=== PATIENT | male | born 1990 | race Two or more races ===

== ENCOUNTER 2025-06-17 07:32 | Emergency (ER) | payer MEDICAID, SELFPAY ==
--- NOTE | 2025-06-17 07:37 | EKG_ITS ---
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
--- NOTE | 2025-06-17 07:50 | XR_ITS ---
Examination: PA lateral chest 2 views TECHNIQUE: Upright PA lateral chest 2 views Date and time: June 17, 2025, 0816 hours, comparison December 29, 2023 INDICATIONS: Left-sided sternal chest pain beginning 3 days ago. FINDINGS: Normal heart size Lungs are clear. The osseous structures are intact IMPRESSION: No active disease
--- NOTE | 2025-06-17 07:50 | PD.EDRME ---
Rapid Medical Screening Exam RME Arrival date/time: 06/17/25 07:32 35-year-old male with a history of hypertension presents to the emergency room with a chief complaint of left-sided sternal chest pain that radiates to his left arm x 3 days I have greeted and performed a focused initial assessment of this patient. A comprehensive ED assessment and evaluation of the patient, analysis of all test results, and completion of the medical decision making process will be conducted by additional ED providers. Chief Complaint: Chest Pain Vital signs reviewed by provider: Yes
[2025-06-17 07:54] VITALS: BP 133/83; PULSE 48; RESP 18; TEMP 36.9; O2SAT 99
--- NOTE | 2025-06-17 08:33 | PD.EDCHEST ---
ED Chest Pain RME/HPI General Chief Complaint: Chest Pain Stated Complaint: CHEST PAIN/DYSPNEA SINCE SAT Arrival date/time: 06/17/25 07:32 RME / HPI RME / HPI narrative: 06/17/25 07:32 35-year-old male with a history of hypertension presents to the emergency room with a chief complaint of left-sided sternal chest pain that radiates to his left arm x 3 days I have greeted and performed a focused initial assessment of this patient. A comprehensive ED assessment and evaluation of the patient, analysis of all test results, and completion of the medical decision making process will be conducted by additional ED providers. DR SHORE MAIN ED EVALUATION: 35 yo male patient c/o left sided chest pain x 3 days. States he noticed it while trimming trees at home over the weekend. States pain is sharp, worse with inspiration, radiates around left chest. Associated SOB. No cough, no fever. Related Data Home Medications ?Medication ?Instructions ?Recorded ?Confirmed fenofibrate nanocrystallized 145 145 mg PO DAILY 12/30/23 12/30/23 mg tablet Held on 01/01/24. Instructions: Resume on 01/15/24. hold until follow up with PCP, lisinopril 20 mg tablet 20 mg PO QDAY 12/30/23 12/30/23 sertraline 25 mg tablet 25 mg PO DAILY 12/30/23 12/30/23 Allergies Allergy/AdvReac Type Severity Reaction Status Date / Time No Known Allergies Allergy Verified 06/17/25 07:35 Review of Systems Review of Systems Systems Reviewed: All systems reviewed, normal except as documented Past Medical History Past Medical History CARDIAC: Positive Cardiac Disorders, Hypercholesterolemia and Hypertension ENDOCRINE: Positive Diabetes Mellitus Type 2 Surgical History SURGICAL: Negative Cardiac Surgery Social History SMOKING STATUS: Never smoker SUBSTANCE USE: does not use ED Exam Narrative Physical exam: GENERAL APPEARANCE: alert and oriented x 4, well-developed, well-nourished, no acute distress HEENT: Normocephalic, atraumatic; pupils equal, round, reactive to light; EOMI; mucous membranes pink, moist; oropharynx clear NECK: Supple LUNGS: CTABL; no wheezes, no rales, no rhonchi HEART: Regular rate, regular rhythm; normal S1, S2; no murmurs ABDOMEN: non distended; normal BS; soft, no tenderness, no guarding, no rebound; no masses, no organomegaly, no hernia BACK: no CVA tenderness EXTREMITIES: atraumatic; no edema NEUROLOGIC: awake; alert and oriented x4; cranial nerves II-XII grossly intact; no focal sensory or motor deficits PSYCHIATRIC: appropriate mood and affect SKIN: warm, dry, normal color; no rashes Course Course Course Narrative: Patient remains clinically stable throughout the emergency department visit. We reviewed all the results, analysis, and treatment plans. Patient is amenable to discharge. Strict return precautions were outlined. Patient was discharged in stable condition. Quality Measures none Orders Category Date Time Status EKG (ED ONLY) *Do not use* NOW Care 06/17/25 07:[address] chest wo con Stat Exams 06/17/25 11:14 Completed EKG (ED Only) Stat Exams 06/17/25 07:37 Draft XR chest 2V Stat Exams 06/17/25 07:50 Completed Alcohol, Blood Medical Stat Lab 06/17/25 08:31 Completed B-Type Natriuretic Peptide Stat Lab 06/17/25 08:31 Completed CBC Stat Lab 06/17/25 08:31 Completed Comprehensive Metabolic Panel Stat Lab 06/17/25 08:31 Completed D-Dimer Stat Lab 06/17/25 08:31 Completed Drug Screen,Urine Stat Lab 06/17/25 08:15 Completed Magnesium Stat Lab 06/17/25 08:31 Completed Partial Thromboplastin Time Stat Lab 06/17/25 08:31 Completed Prothrombin Time with INR Stat Lab 06/17/25 08:31 Completed Troponin I Stat Lab 06/17/25 08:31 Completed Urinalysis, C/S if Indicated Stat Lab 06/17/25 08:15 Completed Ketorolac Inj [Toradol Inj] Med 06/17/25 13:49 Discontinued 15 mg IVP X1 ONE Morphine* Inj Med 06/17/25 09:26 Discontinued 4 mg IVP X1 ONE Ondansetron Inj [Zofran Inj] Med 06/17/25 09:26 Discontinued 4 mg IVP X1 ONE Vital Signs Vital signs: Vital Signs Temperature 98.5 F 06/17/25 07:54 Pulse Rate 48 L 06/17/25 07:54 Respiratory Rate 18 06/17/25 07:54 Blood Pressure 133/83 H 06/17/25 07:54 Pulse Oximetry (%) 99 06/17/25 07:54 Oxygen Delivery Method Room Air 06/17/25 07:54 Pulse ox is 99% on room air which is adequate. Chest Pain MDM Narrative MDM Narrative:: I Loristacy Chauhan, am scribing for and in the presence of Dr. Shore. Patient data External records reviewed:: [facility] previous records Clinical information provided by:: patient Social determinants that could affect healthcare access:: none Patient has the following chronic illnesses:: HTN, DM How is presenting disease/condition affected by chronic disease/condition?: uneffected by Evaluation data The following diagnostics were reviewed and interpreted by me:: lab results, radiology exam(s) and EKG tracing(s) (EKG @ 07:43AM. Sinus bradycardia, rate 48, acute ischemic changes, no STEMI. ) Lab and/or radiology exams considered but not ordered:: None Interpretation Summary: Ordering Physician: Tani Wheat Date of Service: 06/17/25 Procedure(s): XR chest 2V Accession Number(s): [id number] cc: Tani Wheat; Manuel Hernandez PA-C; Arnaldo Sandoval MD~ Examination: PA lateral chest 2 views TECHNIQUE: Upright PA lateral chest 2 views Date and time: June 17, 2025, 0816 hours, comparison December 29, 2023 INDICATIONS: Left-sided sternal chest pain beginning 3 days ago. FINDINGS: Normal heart size Lungs are clear. The osseous structures are intact IMPRESSION: No active disease Dictated By: Arnaldo Sandoval MD Signed By: <Electronically signed by Arnaldo Sandoval MD in OV> 06/17/25 0905 Ordering Physician: Lacie Shore MD Date of Service: 06/17/25 Procedure(s): CT chest wo con Accession Number(s): [id number] cc: Manuel Hernandez PA-C; Arnaldo Sandoval MD; Lacie Shore MD~ Examination: CT chest, without intravenous contrast. Sagittal and coronal 2-D reconstructions. Exam date and time: June 17, 2025, 12:10 PM INDICATIONS: Chest pain shortness of breath beginning 2 days ago CTDI:vol (mGy) 13.9 DLP: (mGycm) 488 Technique: Multiple 3.0 mm axial sections of the chest to been obtained. Bone and lung density settings are obtained. Sagittal and coronal 2-D reconstructions have been obtained. Low dose protocols were performed. One or more of the following dose reduction techniques were used; automated exposure control, adjustment of the mA and/or KV according to patient size, use of iterative reconstruction technique. Findings: No thoracic aortic aneurysmal dilatation Pulmonary artery segments are not enlarged. No paratracheal tracheobronchial or bronchopulmonary adenopathy. 2 mm pulmonary nodule right upper lobe image 112 No pneumonia or pulmonary edema, no pleural disease No visualized liver or splenic lesion No gallstones No pancreatic or adrenal mass 2 mm nonobstructing left renal calculus 1 mm nonobstructing right renal calculus IMPRESSION: No thoracic aortic aneurysmal dilatation No mediastinal lymphadenopathy. 2 mm pulmonary nodule right upper lobe, suggest 6 month follow-up CT chest without contrast No pneumonia, pulmonary edema or pleural disease Tiny bilateral nonobstructing renal calculi Dictated By: Arnaldo Sandoval MD Signed By: <Electronically signed by Arnaldo Sandoval MD in OV> 06/17/25 1300 Medications / Prescriptions Medications or Prescriptions considered but not ordered:: None Medication administrations:: Medication Administration History Discontinued Medications Ketorolac Tromethamine (Ketorolac Inj 30 Mg/Ml Vial) 15 mg IVP X1 ONE Stop: 06/17/25 13:50 Morphine Sulfate (Morphine Sulf Inj 4 Mg/Ml Vial) 4 mg IVP X1 ONE Stop: 06/17/25 09:27 Last Admin: 06/17/25 09:38 Dose: 4 mg Documented By: BY Ondansetron HCl (Ondansetron Inj 2 Mg/Ml Inj 2 Ml) 4 mg IVP X1 ONE Stop: 06/17/25 09:27 Last Admin: 06/17/25 09:37 Dose: 4 mg Documented By: BY See above Consultations Consultation(s) initiated? (list below): No Diagnosis Chest Pain Differential Diagnosis: fracture of rib, pneumothorax, stable angina, atypical chest pain, st elevation myocardial infarction, costochondritis and chest pain Most likely diagnosis given after review of the tests above:: Chest pain Admission Indicated Admission indicated?: not indicated Admission Request Was there a request for admission?: No Disposition Plan Disposition Plan: Discharge Discharge Attestation Discharge Attestation: The patient and all family members were given an opportunity to ask questions and understood the discharge instructions. Discharge instructions specifically effects, indications for sooner follow up or return to the emergency department, and the expected course of current diagnosis. Patient condition: Stable Discharge Plan Plan Patient Disposition: HOME (Self Care) Prescriptions/Referrals Prescriptions/Med Rec: No Action lisinopril 20 mg Tablet 20 mg PO QDAY sertraline 25 mg tablet 25 mg PO DAILY Patient Comments: take 1 tablet by mouth once daily fenofibrate nanocrystallized 145 mg tablet 145 mg PO DAILY Patient Comments: take 1 tablet by mouth once daily Referrals: Manuel Hernandez PA-C [Primary Care Provider] - In 1 week Problem List Clinical Impression: Chest pain Patient/Caregiver Discharge Instructions Education Materials: ED Chest Pain, Uncertain Cause Print Language: Samoan Stand Alone Forms: [employer]ph[employer] Award Info., Patient Portal Info Letter
[2025-06-17 08:37] LABS: Collection Type, Urine Clean Catch; Squamous Epithelial Cell,Urine 0 /hpf (0-5)
[2025-06-17 08:45] LABS: Basophils # (Auto) 0.1 Thou/mm3 (0.0-0.2); Basophils % (Auto) 1 % (0-2.5); Eosinophils # (Auto) 0.3 Thou/mm3 (0.0-0.5); Eosinophils % (Auto) 3 % (0-10); Hematocrit 43.2 % (41.0-53.0); Hemoglobin 14.5 g/dL (13.5-16.0); Immature Granulocytes Auto 0.03 Thou/mm3 (0.00-0.00); Lymphocytes # (Auto) 2.8 Thou/mm3 (1.0-4.8); Lymphocytes % (Auto) 33 % (10-50); Mean Corpuscular HGB Conc 33.6 g/dl (31.0-37.0); Mean Corpuscular Hemoglobin 29.5 pg (25.0-35.0); Mean Corpuscular Volume 88 fL (80-100); Monocytes # (Auto) 0.6 Thou/mm3 (0.0-0.8); Monocytes % (Auto) 8 % (0-12); Neutrophils # (Auto) 4.6 Thou/mm3 (1.8-7.7); Neutrophils % (Auto) 54 % (37-80); Nucleated Red Blood Cell # 0.00 Thou/mm3 (0.00-0.00); Nucleated Red Blood Cell % 0 /100 WBC (0); Platelet Count 291 Thou/mm3 (140-440); RDW Standard Deviation 40.3 fL (35.1-43.9); Red Blood Count 4.91 Miln/mm3 (4.50-5.90); White Blood Count 8.4 Thou/mm3 (3.8-10.6)
[2025-06-17 08:48] LABS: Amphetamine/Methamp Scrn,U Negative (Negative); Barbiturate Screen,Urine Negative (Negative); Benzodiazepines Screen,Urine Negative (Negative); Benzoylecgonine Screen, Ur Negative (Negative); Fentanyl Screen,Urine Negative (Negative); Opiate Screen,Urine Negative (Negative); THC Screen,Urine Negative (Negative)
[2025-06-17 08:50] LABS: Bilirubin,Urine Negative (Negative); Blood,Urine Negative (Negative); Clarity,Urine Clear (Clear/Hazy); Color,Urine Lt-Yellow (Lt Yel-Yel); Culture Indicated,Urine Not Indicated; Glucose, Urine Negative (Negative); Ketones,Urine Negative (Negative); Leukocyte Esterase,Urine Negative (Negative); Nitrite,Urine Negative (Negative); PH,Urine 6.0 (5.0-7.0); Protein,Urine Negative (Neg - Trace); RBC,Urine 1 /hpf (0-3); Specific Gravity,Urine 1.021 (1.001-1.035); Urobilinogen,Urine Negative mg/dL (0.0-1.0); WBC,Urine < 1 /hpf (0-5)
[2025-06-17 08:51] VITALS: BP 133/85; PULSE 46; RESP 16; TEMP 36.9; O2SAT 95
[2025-06-17 09:04] LABS: INR 1.0 (0.9-1.3); Partial Thromboplastin Time 28.5 Seconds (22.0-36.0); Prothrombin Time 10.6 Seconds (9.0-12.2)
[2025-06-17 09:07] LABS: B-Type Natriuretic Peptide < 20 pg/mL (0-100)
[2025-06-17 09:10] LABS: Alanine Aminotransferase 27 U/L (10-49); Albumin, Serum 4.9 gm/dL (3.5-5.0); Albumin/Globulin Ratio 1.5 (1.2-2.2); Alcohol, Blood Medical < 3.0 mg/dL (0-10.0); Alkaline Phosphatase 60 U/L (46-116); Anion Gap 10 (7-16); Aspartate Amino Transferase 29 U/L (0-34); BUN/Creatinine Ratio 11 Ratio (12-20); Bilirubin,Total 0.4 mg/dL (0.3-1.2); Blood Urea Nitrogen 8 mg/dL (9-23); Calcium 9.7 mg/dL (8.3-10.6); Calcium (Corrected) 9.7 mg/dL (8.5-10.1); Carbon Dioxide 24.0 mMol/L (20.0-31.0); Chloride 107 mMol/L (98-107); Creatinine (Component) 0.7 mg/dL (0.6-1.3); Globulin 3.3 gm/dL (2.3-3.5); Glucose 82 mg/dL (74-106); Magnesium 1.8 mg/dL (1.6-2.6); Osmolality,Calculated 278 (275-295); Potassium 4.4 mMol/L (3.4-5.1); Sodium 141 mMol/L (136-145); Total Protein 8.2 gm/dL (5.7-8.2); Troponin I < 0.020 ng/mL (0.0-0.045); eGFR > 60 See Note
[2025-06-17 09:34] VITALS: BP 120/80; PULSE 52; RESP 18; O2SAT 99
[2025-06-17] MEDS: ONDANSETRON INJ 2 MG/ML INJ 2 ML 4 MG IVP (09:37)
[2025-06-17] MEDS: MORPHINE SULF INJ 4 MG/ML VIAL IVP (09:38)
[2025-06-17 10:24] VITALS: BP 126/82; PULSE 55; RESP 16; TEMP 37.2; O2SAT 97
[2025-06-17 10:38] VITALS: BMI 30.1
[2025-06-17 11:04] LABS: D-Dimer < 250 ng/mL (<600)
--- NOTE | 2025-06-17 11:14 | XR_ITS ---
Examination: CT chest, without intravenous contrast. Sagittal and coronal 2-D reconstructions. Exam date and time: June 17, 2025, 12:10 PM INDICATIONS: Chest pain shortness of breath beginning 2 days ago CTDI:vol (mGy) 13.9 DLP: (mGycm) 488 Technique: Multiple 3.0 mm axial sections of the chest to been obtained. Bone and lung density settings are obtained. Sagittal and coronal 2-D reconstructions have been obtained. Low dose protocols were performed. One or more of the following dose reduction techniques were used; automated exposure control, adjustment of the mA and/or KV according to patient size, use of iterative reconstruction technique. Findings: No thoracic aortic aneurysmal dilatation Pulmonary artery segments are not enlarged. No paratracheal tracheobronchial or bronchopulmonary adenopathy. 2 mm pulmonary nodule right upper lobe image 112 No pneumonia or pulmonary edema, no pleural disease No visualized liver or splenic lesion No gallstones No pancreatic or adrenal mass 2 mm nonobstructing left renal calculus 1 mm nonobstructing right renal calculus IMPRESSION: No thoracic aortic aneurysmal dilatation No mediastinal lymphadenopathy. 2 mm pulmonary nodule right upper lobe, suggest 6 month follow-up CT chest without contrast No pneumonia, pulmonary edema or pleural disease Tiny bilateral nonobstructing renal calculi
[2025-06-17] MEDS: KETOROLAC INJ 30 MG/ML VIAL 15 MG IVP (13:57)
[2025-06-17 14:00] VITALS: BP 135/89; PULSE 52; RESP 18; O2SAT 96
== END 2025-06-17 14:12 | disposition home or self-care (01) ==
PROVIDERS: Nurse Practitioner Family; Emergency Provider Emergency Medicine; PCP Physician Assistant
DX: R07.2 Precordial pain (principal); R91.1 Solitary pulmonary nodule; N20.0 Calculus of kidney; R00.1 Bradycardia, unspecified; I10 Essential (primary) hypertension; E78.00 Pure hypercholesterolemia, unspecified
CPT/HCPCS: 36415; 71046; 71250; 80053; 80307; 80320; 81001; 83735; 83880; 84484; 85025; 85379; 85610; 85730; 93005; 96374; 96375; 99284; J1885; J2270; J2405; G0480